=== PATIENT | female | born 1955 | race Two or more races ===

== ENCOUNTER 2019-01-06 02:58 | Emergency (ER) | payer OTHER ==
[~2019-01-06] VITALS: Ht 160 cm; Wt 43.5 kg
[2019-01-06 03:49] LABS: Basophils # (auto) 0.1 uL; Basophils % (auto) 0.7 % (0.0-2.0); Eosinophils # (auto) 0.4 uL; Eosinophils % (auto) 4.7 % (0.0-7.0); Hemoglobin 10.5 g/dL (12.2-16.2); Mean Corpuscular Hemoglobin 32.3 pg (28.0-32.0); Mean Corpuscular Hgb Conc. 33.8 g/dL (32.0-36.0); Mean Corpuscular Volume 95.6 fL (80.0-100.0); Monocytes % (auto) 11.5 % (0.0-12.0); Neutrophils # (auto) 4.1 uL; Neutrophils % (auto) 48.1 % (37.0-80.0); Platelet Count (auto) 256 10^3/uL (140-450); Red Blood Cells 3.24 10^6/uL (4.0-5.20); Red Cell Distribution Width 15.6 % (11.8-14.3); White Blood Cell 8.6 10^3/uL (4.4-10.8)
[2019-01-06 04:10] LABS: Chloride 105 mmol/L (98-107); Potassium 3.8 mmol/L (3.5-5.1); Sodium 138 mmol/L (136-145)
[2019-01-06 04:14] LABS: Alanine Aminotransferase 25 U/L (13-56); Aspartate Aminotransferase 22 U/L (15-37); Blood Alcohol < 3.0 mg/dL (0-5); Blood Urea Nitrogen 10 mg/dL (7-18); Carbon Dioxide 11 mmol/L (21-32); GFR African American 97 mL/min; GFR Non-African American 80 mL/min
[2019-01-06 04:19] LABS: Alkaline Phosphatase 109 U/L (45-117); Bilirubin, Total 0.1 mg/dL (0.2-1.0); Glucose 122 mg/dL (74-106)
[2019-01-06 04:27] LABS: Albumin 0.1 g/dL (3.4-5.0)
[2019-01-06] MEDS ORDERED: ALBUMIN 5% 250 ML IV ONE (04:30)
[2019-01-06 04:37] LABS: Calcium 8.2 mg/dL (8.5-10.1)
[2019-01-06 06:27] LABS: Anion Gap 22 (5-15)
[2019-01-06 06:54] LABS: Alcohol, Urine < 3.0 mg/dL (0-5); Amphetamine Screen, Urine NEGATIVE (NEGATIVE); Barbiturate Scree,Urine NEGATIVE (NEGATIVE); Benzodiazephine Screen, Urine NEGATIVE (NEGATIVE); Cannabinoid Screen, Urine NEGATIVE (NEGATIVE); Cocaine Screen, Urine NEGATIVE (NEGATIVE); Opiate Scree,Urine NEGATIVE (NEGATIVE); Phencyclidine Screen, Urine NEGATIVE (NEGATIVE)
[2019-01-06] MEDS ORDERED: LEVOFLOXACIN 500 MG TAB PO ONE (07:45)
[2019-01-06] MEDS ORDERED: IBUPROFEN 800 MG TAB PO ONE (08:45)
[2019-01-06 09:00] VITALS: BP 118/70
== END 2019-01-06 09:21 | disposition home or self-care (01) ==
LOC: EDBD 03:00 → ER 03:00
DX: J18.9 Pneumonia, unspecified organism (principal); R20.0 Anesthesia of skin; M54.2 Cervicalgia; M54.6 Pain in thoracic spine; R07.9 Chest pain, unspecified
CPT/HCPCS: 36415; 70450; 71045; 80053; 80307; 80320; 84484; 85025; 93005; 96365; 99284; P9045